=== PATIENT | female | born 1990 | race Hispanic/Latino ===

== ENCOUNTER 2024-04-18 19:07 | Emergency (ER) | payer OTHER, SELFPAY ==
[2024-04-18 19:11] VITALS: BP 116/73
[2024-04-18 20:05] LABS: Urine Albumin Negative (Neg - Trace); Urine Bilirubin Negative (Negative); Urine Character Clear (Clear); Urine Color Yellow; Urine Glucose Negative (Negative); Urine Ketone Negative (Negative); Urine Leukocyte Negative (Negative); Urine Nitrite Negative (Negative); Urine Occult Blood Negative (Negative); Urine Urobilinogen 1+ (Neg - 1+)
--- NOTE | 2024-04-18 20:36 | ED.GENMED ---
History of Present Illness
General
Chief Complaint: Problems
Time Seen by Provider: 04/18/24 19:57
History of Present Illness
History of Present Illness:
34-year-old female, , presenting from correctional facility for concern of decreased movement. Patient reports she is about 4 months with last menstrual period in November. She has had a limited movement for the past day, however
notes that she started to feel movement a few weeks ago. Denies any vaginal bleeding or significant abdominal pain. She arrives from correctional facility, so has limited care, however has been taking vitamins. She has not yet
had an obstetric appointment. She denies chest pain or difficulty breathing. She denies fever. She does note some mild lower extremity edema. Denies any complications with her prior . She denies additional acute medical complaints
Phy Exam
Physical Exam
Physical Exam:
General: Well-appearing, no clinical signs of dehydration, nontoxic and in no acute distress
HEENT: protecting airway
Neck: appears supple
CV: Normal heart rate, regular rhythm, no evidence of cyanosis
Resp: No accessory muscle use, no increased work of breathing, lungs clear to auscultation bilaterally
Abd: Soft and non-distended, no tenderness to palpation
Extremities: No deformities, mild edema, no tenderness
Neuro: alert, no focal neurologic deficit
: deferred
Rectal: deferred
Psych: Normal affect
Skin: Intact
Course
Orders/Labs/Results
Orders:
Orders
04/18/24 19:57
Urinalysis Reflex To Culture Urgent
Date Specimen was Collected: 04/18/24
Time Specimen was Collected: 19:56
Vital Signs
Initial and Last Documented VS:
Initial Vital Signs
Temp Pulse Resp BP Pulse Ox
98.5 F 78 15 116/73 97
04/18/24 19:11 04/18/24 19:11 04/18/24 19:11 04/18/24 19:11 04/18/24 19:11
Last Documented Vital Signs
Temp Pulse Resp BP Pulse Ox
98.5 F 78 15 116/73 97
04/18/24 19:11 04/18/24 19:11 04/18/24 19:11 04/18/24 19:11 04/18/24 19:11
Information
Weeks gestation: Weeks: (18)
Location: Location: ([facility])
MDM/Problems Addressed
MDM/Problems Addressed:
34-year-old female, , at approximately 4 weeks of presenting for concern of decreased movement. Vital signs on arrival are normal.
On exam, patient is well-appearing, no acute distress or discomfort. Unremarkable examination of the abdomen, soft and nondistended, nontender. Urinalysis obtained, no signs of infection, no blood, no protein. Bedside ultrasound obtained,
confirms a live [facility] with a heart rate of 145. Gestational age is approximately 18 weeks by [employer]. Fetus is moving around appropriately. At this time do not feel patient requires any additional imaging or workup. Explained to patient that at
16 to 18 weeks, movement can be very consistent. Patient confirms that the residential did not make her an obstetric appointment, plain importance of continued care and vitamins. Strict return precautions were communicated to
patient who verbalized understanding
*Critical Care Note
Total Time (30-74mins, 75-104mins- exclusive of procedures): Not Applicable
ED Attending Note
-
Portions of this chart may have been created with voice recognition software.� Occasional wrong word or��sound alike� substitutions may have occurred due to the inherent limitations of voice recognition software.
Discharge Plan
Departure
Patient Disposition: Home (Routine Discharge)
Date of Disposition: 04/18/24
Time of Disposition: 20:43
Patient with high blood pressure during this ER visit?: No
Condition: Good
Discharge Problem:
Concern about current without diagnosis
Instructions: symptoms
Referrals:
NONE,* [Family Provider] -
Activity Restrictions/Additional Instructions:
You were seen in the emergency department for concern of decreased movement of your baby
You were found to have a live intrauterine with a normal heartbeat. You are estimated to be at about 18 weeks gestation. Please establish care with an MEDICAID NURSE and continue to take your vitamins.
Return to the emergency department for any vaginal bleeding or abdominal cramping, leakage of abnormal vaginal fluids, or any development of chest pain, difficulty breathing, abdominal pain with persistent vomiting and inability to tolerate food or
liquid by mouth (concern for dehydration), weakness, headache or confusion, fever greater than 100.4, or any additional symptoms that are concerning to you.
Thank you for choosing [facility].
Interventions
Interventions:
*Risk Screen - Suicide Last Done: 04/18/24 19:09
*General Assessment Last Done: 04/18/24 19:09
*Neglect/Abuse Screening Last Done: 04/18/24 19:09
ED- Fall Risk Assessment Last Done: 04/18/24 21:28
*ED COVID-19 Vaccine History Last Done: 04/18/24 19:09
*Nursing Disposition Last Done: 04/18/24 21:28
ED-Female Genitourinary Assessment Last Done: 04/18/24 21:05
Discharge Date and Time
Discharge Date/Time: 04/18/24 21:36
Print Language: TUVALUAN
== END 2024-04-18 21:36 | disposition home or self-care (01) ==
LOC: EMR 19:07
PROVIDERS: EMERGENCY PHYSICIAN Student in an Organized Health Care Education/Training Program
DX: O36.8320 Maternal care for abnormalities of the fetal heart rate or rhythm, second trimester, not applicable or unspecified (principal); Z3A.18 18 weeks gestation of pregnancy
CPT/HCPCS: 99282; 81003

== ENCOUNTER → 2024-06-20 08:54 | Outpatient (REF) | payer OTHER, SELFPAY | LOC: PNTC 08:54 | PROVIDERS: ATTENDING PHYSICIAN Nurse Practitioner; REFERRING PHYSICIAN Obstetrics & Gynecology | DX: O99.320 Drug use complicating pregnancy, unspecified trimester (principal) | CPT/HCPCS: 76811; 93976 ==

== ENCOUNTER 2024-07-29 11:14 | Emergency (ER) | payer OTHER, SELFPAY ==
[2024-07-29 11:20] VITALS: BP 115/55
--- NOTE | 2024-07-29 11:29 | ED.GENMED ---
History of Present Illness
<Sandra Cohn PA-C - Last Filed: 07/29/24 18:11>
General
Chief Complaint: Cold/Flu/URI Symptoms
Source: patient
Exam Limitations: none
Time Seen by Provider: 07/29/24 11:17
Nursing documentation reviewed up to this point in time: agreed with
History of Present Illness
History of Present Illness:
This is a 34-year-old G3, P2 female no past medical history who is 34 weeks presents to the emergency department today with concerns of shortness of breath and cough for past 2 days. Patient states that she has been coughing up a lot of
sputum and has noticed specks of blood in her sputum this morning. She also notes chest discomfort with the symptoms. She is on and off fevers and chills. She has no urinary symptoms, nausea or vomiting. No new redness or swelling in her legs.
She states that she feels dehydrated and has been eating and drinking less. She notes runny nose, she denies sore throat or trouble swallowing. Patient denies any abdominal pain, no regular movements.
Review of Systems
<Sandra Cohn PA-C - Last Filed: 07/29/24 18:11>
Review of Systems
All Other Systems: ROS reviewed and negative except as documented in HPI and ROS
Phy Exam
<Sandra Cohn PA-C - Last Filed: 07/29/24 18:11>
Physical Exam
Physical Exam:
General: Patient is well appearing and in no acute distress; non-toxic
Skin: Warm and dry, no rashes or lesions
Head: Normocephalic, atraumatic
Eyes: Sclera non-icteric. EOMs intact.
Cardiac: Regular rate
Peripheral Vascular:
Pulm: Normal respiratory effort
Abdomen: No abdominal tenderness
Musculoskeletal:
Neuro: CN II-XII intact, no focal neurologic deficits.
Psychiatric: Appropriate mood and affect.
Course
<Sandra Cohn PA-C - Last Filed: 07/29/24 18:11>
Orders/Labs/Results
Orders:
Orders
07/29/24 11:33
COVID-19 Antigen Urgent
Source: Nasal Swab
Influenza A+B Rapid Molecular Urgent
BRITTNEY Source: Nasal Swab
Specimen Description:
07/29/24 11:35
Lactated Ringers [Lr] 1,000 ml IV BOLUS
07/29/24 11:36
CR Chest - 2 Views Urgent
Comment:
Reason For Exam: shortness of breath, chest pain
07/29/24 11:40
Acetaminophen [Tylenol] 500 mg PO NOW STA
07/29/24 11:41
Electrocardiogram (*1) Urgent
Reason for Study: Chest Pain
EKG- Treatment ONCE
07/29/24 11:44
Complete Blood Count/With Diff Urgent
07/29/24 11:45
Heart Tones ONCE
07/29/24 12:40
Oseltamivir Phosphate [Tamiflu] 75 mg PO NOW STA
07/29/24 13:43
Comprehensive Metabolic Panel Urgent
Abnormal Lab Results
07/29/24 07/29/24
11:44 13:43
Hct 35.5 L %
(37.0-47.0)
Abs Immat Gran (auto) 0.1 H 10^3/uL
(0-0.05)
Absolute Neuts (auto) 7.3 H 10^3/uL
(1.4-6.5)
Absolute Lymphs (auto) 0.5 L 10^3/uL
(1.2-3.4)
Absolute Monos (auto) 0.9 H 10^3/uL
(0.1-0.6)
Immature Gran % 1.6 H %
(0-0.5)
Neutrophils % 82.8 H %
(42.2-75.2)
Lymphocytes % 5.8 L %
(20.5-51.1)
Monocytes % 9.6 H %
(1.7-9.3)
Sodium 132 L mmol/L
(135-145)
Carbon Dioxide 19 L mmol/L
(22-30)
Creatinine 0.5 L mg/dL
(0.6-1.0)
Calcium 8.2 L mg/dl
(8.4-10.2)
Total Protein 5.8 L g/dl
(6.3-8.2)
Albumin 3.2 L g/dl
(3.5-5.0)
07/29/24 11:44
07/29/24 13:43
Vital Signs
Initial and Last Documented VS:
Initial Vital Signs
Temp Pulse Resp BP Pulse Ox
99.3 F 122 18 115/55 97
07/29/24 11:20 07/29/24 11:20 07/29/24 11:20 07/29/24 11:20 07/29/24 11:20
Last Documented Vital Signs
Temp Pulse Resp BP Pulse Ox
99.3 F 102 16 97/60 97
07/29/24 11:20 07/29/24 14:06 07/29/24 12:07 07/29/24 14:00 07/29/24 13:33
<Gigi Otto, DO - Last Filed: 07/29/24 13:59>
Orders/Labs/Results
Orders:
Orders
07/29/24 11:33
COVID-19 Antigen Urgent
Source: Nasal Swab
Influenza A+B Rapid Molecular Urgent
BRITTNEY Source: Nasal Swab
Specimen Description:
07/29/24 11:35
Lactated Ringers [Lr] 1,000 ml IV BOLUS
07/29/24 11:36
CR Chest - 2 Views Urgent
Comment:
Reason For Exam: shortness of breath, chest pain
07/29/24 11:40
Acetaminophen [Tylenol] 500 mg PO NOW STA
07/29/24 11:41
Electrocardiogram (*1) Urgent
Reason for Study: Chest Pain
EKG- Treatment ONCE
07/29/24 11:44
Complete Blood Count/With Diff Urgent
07/29/24 11:45
Heart Tones ONCE
07/29/24 12:40
Oseltamivir Phosphate [Tamiflu] 75 mg PO NOW STA
07/29/24 13:43
Comprehensive Metabolic Panel Urgent
Abnormal Lab Results
07/29/24 07/29/24
11:44 13:43
Hct 35.5 L %
(37.0-47.0)
Abs Immat Gran (auto) 0.1 H 10^3/uL
(0-0.05)
Absolute Neuts (auto) 7.3 H 10^3/uL
(1.4-6.5)
Absolute Lymphs (auto) 0.5 L 10^3/uL
(1.2-3.4)
Absolute Monos (auto) 0.9 H 10^3/uL
(0.1-0.6)
Immature Gran % 1.6 H %
(0-0.5)
Neutrophils % 82.8 H %
(42.2-75.2)
Lymphocytes % 5.8 L %
(20.5-51.1)
Monocytes % 9.6 H %
(1.7-9.3)
Sodium 132 L mmol/L
(135-145)
Carbon Dioxide 19 L mmol/L
(22-30)
Creatinine 0.5 L mg/dL
(0.6-1.0)
Calcium 8.2 L mg/dl
(8.4-10.2)
Total Protein 5.8 L g/dl
(6.3-8.2)
Albumin 3.2 L g/dl
(3.5-5.0)
07/29/24 11:44
07/29/24 13:43
Vital Signs
Initial and Last Documented VS:
Initial Vital Signs
Temp Pulse Resp BP Pulse Ox
99.3 F 122 18 115/55 97
07/29/24 11:20 07/29/24 11:20 07/29/24 11:20 07/29/24 11:20 07/29/24 11:20
Last Documented Vital Signs
Temp Pulse Resp BP Pulse Ox
99.3 F 102 16 97/60 97
07/29/24 11:20 07/29/24 14:06 07/29/24 12:07 07/29/24 14:00 07/29/24 13:33
<Sandra Cohn PA-C - Last Filed: 07/29/24 18:11>
MDM/Problems Addressed
Differential Diagnosis Includes:
See below
MDM/Problems Addressed:
NUMBER AND COMPLEXITY OF PROBLEMS ADDRESSED AT THE ENCOUNTER
� Chronic conditions affecting care: N/A
� Acute Exacerbation and/or Progression of Chronic Illness:
� Differential Diagnosis includes: Acute bronchitis, pneumonia, COVID-19
AMOUNT AND/OR COMPLEXITY OF DATA TO BE REVIEWED AND ANALYZED
� I performed an independent evaluation of and my interpretation is:
EKG: sinus tachycardia rate 108 no concerning ischemic changes
Influenza positive
X-rays: No evidence of pneumonia
Laboratory Studies: CBC and CMP unremarkable
Other:
� Review of other/old records: Reviewed previous ER physician documentation from 04/17/2024, patient seen in the emergency department for concerns of decreased movement
� Clinical information was obtained by an independent historian: n/a
� Prescriptions/Medications Considered but not given: none
� Further testing considered but not performed: n/a
RISK OF COMPLICATIONS AND/OR MORBIDITY OR MORTALITY OF PATIENT MANAGEMENT
� Social determinants of health affecting care: none
� Discussion with other providers: ER attending
� Escalation of care including admission/observation vs risk of discharge considered:
34 y/o female who is 34 weeks presents to the ER today with concerns of cough and shortness of breath. On physical exam, she is febrile and there is scattered rhonchi heard throughout. She is not hypoxic. She tested positive for influenza
A. She CXR is negative for concurrent pneumonia. She was started on Tamiflu. Reviewed case with [employer] TECHNICIAN on-call who recommended nonstress testing. Nurse came down patient had nonstress testing done which was normal. heart tones 154. Patient
medically stable for incarceration. Patient stable for discharge.
<Sandra Cohn PA-C - Last Filed: 07/29/24 18:11>
*Critical Care Note
Total Time (30-74mins, 75-104mins- exclusive of procedures): Not Applicable
ED Attending Note
<Sandra Cohn PA-C - Last Filed: 07/29/24 18:11>
-
Portions of this chart may have been created with voice recognition software.� Occasional wrong word or��sound alike� substitutions may have occurred due to the inherent limitations of voice recognition software.
<Gigi Otto DO - Last Filed: 07/29/24 13:59>
ED Attending Note
Patient seen and examined by attending physician: Yes
I performed a history and physical exam of patient and discussed management with resident, I reviewed resident's note and agree with documented findings and plan of care.: Yes
ED Attending Note:
I have reviewed and agree with history treatment plan by Sandra Cohn my exam revealed 34-year-old female with gravid uterus, cough, clear lungs bilaterally. Chest x-ray no acute findings. NST normal. [facility] discharge to [facility] with Tamiflu prescription and albuterol prescription.
Discharge Plan
Departure
Patient Disposition: Home (Routine Discharge)
Date of Disposition: 07/29/24
Time of Disposition: 14:03
Patient with high blood pressure during this ER visit?: No
Condition: Good
Discharge Problem:
Influenza A
Instructions: Flu in adults - Discharge instructions, Fever in adults - Discharge instructions
Prescriptions:
New
albuterol sulfate [Ventolin HFA] 90 mcg/actuation HFA aerosol inhaler
1 inh inhalation Q6H PRN (Reason: shortness of breath or wheezing) Qty: 1 0RF
oseltamivir [Tamiflu] 75 mg capsule
75 mg PO BID Qty: 9 0RF
Referrals:
[facility] [Family Provider] -
Activity Restrictions/Additional Instructions:
You tested positive for influenza A. Please alternate Tylenol and Motrin for your fever. Medically stable for incarceration.
Tamiflu has been sent to the pharmacy and you have been given a paper prescription.
Tamiflu has been started today. You received 1 dose in the morning. You will need your next dose later today. You can continue taking this medication 1 tablet twice daily for 5 additional days. An inhaler has also been sent to your pharmacy, you
can take 1 puff every 6 hours as needed for shortness of breath/cough.
Please return emergency department should you experience increasing shortness of breath, persistent chest pain, syncopal episodes, lightheadedness, dizziness, abdominal pain, vaginal bleeding, or any other signs or symptoms worrisome to you.
Interventions
Interventions:
*Risk Screen - Suicide Last Done: 07/29/24 11:17
*General Assessment Last Done: 07/29/24 11:18
*Neglect/Abuse Screening Last Done: 07/29/24 11:17
ED- Fall Risk Assessment Last Done: 07/29/24 14:12
*ED COVID-19 Vaccine History Last Done: 07/29/24 11:17
*Nursing Disposition Last Done: 07/29/24 14:12
ED- Pulmonary Assessment Last Done: 07/29/24 11:18
Discharge Date and Time
Discharge Date/Time: 07/29/24 14:19
Print Language: PORTUGUESE
[2024-07-29] MEDS: TYLENOL 500 MG PO (11:46)
[2024-07-29 11:50] LABS: COVID-19 Antigen Negative (Negative)
[2024-07-29 11:57] LABS: % Basophils 0.2 % (0-2); % Immature Granulocytes 1.6 % (0-0.5); % Lymphocytes 5.8 % (20.5-51.1); % Monocytes 9.6 % (1.7-9.3); % Neutrophils 82.8 % (42.2-75.2); Absolute Immature Granulocytes 0.1 10^3/uL (0-0.05); Absolute Lymphocytes 0.5 10^3/uL (1.2-3.4); Absolute Monocytes 0.9 10^3/uL (0.1-0.6); Absolute Neutrophils 7.3 10^3/uL (1.4-6.5); Hematocrit 35.5 % (37.0-47.0); Hemoglobin 12.5 g/dL (12.0-16.0); Mean Corp Hgb Conc. 35.2 g/dL (33.0-37.0); Mean Corpuscular Hgb 28.6 pg (27.0-31.0); Mean Corpuscular Volume 81.2 fL (81.0-99.0); Mean Platelet Volume 9.7 fL (7.4-10.4); Nucleated Red Blood Cells % 0 %; Platelet Count 140 10^3/uL (130-400); Red Blood Cell Count 4.37 10^6/uL (4.20-5.40); Red Cell Dist. Width 13.2 % (11.5-14.5); White Blood Cell Count 8.9 10^3/uL (4.8-10.8)
[2024-07-29] MEDS: LR 1000 IV (12:09)
[2024-07-29] MEDS: TAMIFLU 75 MG PO (12:50)
[2024-07-29 13:00] VITALS: BP 102/65
[2024-07-29 14:00] VITALS: BP 97/60
[2024-07-29 14:09] LABS: ALT (SGPT) 17 U/L (0-35); AST (SGOT) 26 U/L (14-36); Albumin 3.2 g/dl (3.5-5.0); Alkaline Phosphatase 53 U/L (38-126); Blood Urea Nitrogen 9 mg/dl (7-17); Calcium 8.2 mg/dl (8.4-10.2); Carbon Dioxide 19 mmol/L (22-30); Chloride 103 mmol/L (98-107); Glucose 99 mg/dl (70-99); Potassium 3.7 mmol/L (3.5-5.1); Sodium 132 mmol/L (135-145); Total Bilirubin 0.7 mg/dl (0.2-1.3); Total Protein 5.8 g/dl (6.3-8.2); eGFR > 60.00
== END 2024-07-29 14:19 | disposition home or self-care (01) ==
LOC: EMR 11:14
PROVIDERS: Physician Assistant; EMERGENCY PHYSICIAN Emergency Medicine
DX: O99.513 Diseases of the respiratory system complicating pregnancy, third trimester (principal); J10.1 Influenza due to other identified influenza virus with other respiratory manifestations; Z3A.34 34 weeks gestation of pregnancy
CPT/HCPCS: 99284; 96360; 96361; 71046; 80053; 85025; 87502; 87811; 93005